=== PATIENT | female | born 1940 | race Caucasian/White ===

== ENCOUNTER → 2016-08-27 | Outpatient (REF) | payer MEDICARE ==
[~2016-08-27] MED LIST: /WARF25TA OR; ACET65TA OR; ALLE25CA OR; AMLO2.5T OR; ASPI81TA83 OR; BENA40TA OR; CALC600T10 OR; CALCIUM WITH VITD OR; CALCTAB22 OR; COLA100C2 OR; CORE6.25 OR; HYDR25TA6 OR; LODINE OR; MILKSUS OR; MIRALEX OR; MULTIVIT OR; PERC5TAB8 OR; PERC7.5T8 OR; VITA500T OR; ZETI10TA OR
== END ==
LOC: M LAB REF 16:29
PROVIDERS: ATTEND Obstetrics & Gynecology
DX: N95.2 Postmenopausal atrophic vaginitis (principal); N81.11 Cystocele, midline; Z79.899 Other long term (current) drug therapy

== ENCOUNTER → 2016-09-01 | Outpatient (CLI) | payer MEDICARE ==
--- NOTE | 2016-09-01 15:27 | REP ---
RIGHT FOOT, FOUR VIEWS: HISTORY: Ganglion cyst. There is no acute fracture or dislocation. The joint spaces are normal in appearance. An osteophyte is present in the inferior calcaneus. IMPRESSION: There is no acute fracture or dislocation.
== END ==
LOC: M CLY 14:28
PROVIDERS: ATTEND Family Medicine
DX: M67.40 Ganglion, unspecified site (principal); R68.83 Chills (without fever)

== ENCOUNTER → 2016-09-27 | Outpatient (REF) | payer MEDICARE | LOC: M LABNEURO 13:04 | PROVIDERS: ATTEND Psychiatry & Neurology Neurology | DX: G43.909 Migraine, unspecified, not intractable, without status migrainosus (principal) ==

== ENCOUNTER → 2016-11-04 | Outpatient (REF) | payer MEDICARE ==
[~2016-11-04] MED LIST changes: +AMLO5TAB2 PO; +APAP500T10 PO; +BENA20TA PO; +CALC-218 PO; +CHLO25TA PO; +CORE10CA PO; +DULO1CAP2 PO; +IRON50TA PO; +METH1TAB2 PO; +MIRA3350 PO; +MULT1TAB10 PO; +NORC1TAB4 PO; +OMEG100011 PO; +OMEP40CA2 PO; +OXYB10TA PO; +PROAAER10 INH; +QVAR1AER2 IN; +SERT50TA PO; +STOO100C PO; +VITAPOW38 PO; +ZETI10TA30 PO; +[UNRECOGNIZED DRUG - CODE] PO
== END ==
LOC: M LAB REF 10:30
PROVIDERS: ATTEND Podiatrist Foot & Ankle Surgery
DX: M67.471 Ganglion, right ankle and foot (principal)

== ENCOUNTER → 2017-01-13 | Outpatient (REF) | payer MEDICARE ==
[2017-01-13 18:26] LABS: ANION GAP 4 MEQ/L (8-16); BLOOD UREA NITROGEN 22 MG/DL (7-18); CALCIUM LEVEL 9.5 MG/DL (8.8-10.2); CARBON DIOXIDE LEVEL 33 MEQ/L (21-32); CHLORIDE LEVEL 101 MEQ/L (98-107); GLOMERULAR FILTRATION RATE > 60.0 (>39); GLUCOSE, FASTING 112 MG/DL (83-110); POTASSIUM SERUM 4.3 MEQ/L (3.5-5.1); SODIUM LEVEL 138 MEQ/L (136-145)
[2017-01-13 18:54] LABS: MEAN CORPUSCULAR HEMOGLOBIN 30.8 pg (27.0-33.0); MEAN CORPUSCULAR HGB CONC 31.9 g/dl (32.0-36.5); MEAN CORPUSCULAR VOLUME 96.8 fl (80.0-96.0); RED CELL DISTRIBUTION WIDTH 12.8 % (11.5-14.5); WHITE BLOOD COUNT 8.5 K/mm3 (4.0-10.0)
== END ==
LOC: M LAB REF 12:41
PROVIDERS: ATTEND Podiatrist
DX: Z01.818 Encounter for other preprocedural examination (principal)

== ENCOUNTER 2017-01-24 05:51 | Day surgery (SDC) | payer MEDICARE ==
[~2017-01-24] VITALS: Ht 165.1 cm; Wt 79.4 kg
[~2017-01-24 05:51] MED LIST changes: -DULO1CAP2 PO; -IRON50TA PO
[2017-01-24] MEDS ORDERED: CLINDAMYCIN 600 MG in APPROPRIATE DILUENT 1 EA IV ONE (06:00)
[2017-01-24] MEDS ORDERED: LR 1,000 ML IV SCH (06:00)
[2017-01-24] MEDS ORDERED: DULO1CAP2 PO (06:30)
[2017-01-24] MEDS ORDERED: IRON50TA PO (06:34)
[2017-01-24] MEDS ORDERED: MIDAZOLAM INJ 2 MG/2 ML VIAL (J2250) As Ordered ONE (07:07)
[2017-01-24] MEDS ORDERED: fentaNYL 100 MCG/2 ML INJECTION (J3010) As Ordered ONE (07:07)
[2017-01-24] MEDS ORDERED: BUPIVACAINE HCL 0.5% 10 ML VIAL As Ordered ONE (07:14)
[2017-01-24] MEDS ORDERED: LIDOCAINE 1% SDV INJ 30 ML VIAL As Ordered ONE (07:14)
[2017-01-24] MEDS ORDERED: LIDOCAINE 1% MDV 20ML VIAL As Ordered ONE (07:15)
[2017-01-24] MEDS ORDERED: dexameTHASONE 4 MG/ML 1ML VIAL (J1100) As Ordered ONE (07:15)
[2017-01-24] MEDS ORDERED: ONDANSETRON 4MG/2ML VIAL (J2405) As Ordered ONE (07:47)
[2017-01-24] MEDS ORDERED: LIDOCAINE 2% INJ 100 MG/5 ML SDV (FOR ANES.) As Ordered ONE (07:47)
[2017-01-24] MEDS ORDERED: PROPOFOL 200 MG/20 ML VIAL As Ordered ONE (07:47)
--- NOTE | 2017-01-24 09:13 | RO ---
DATE OF PROCEDURE: 01/24/2017 PREPROCEDURE DIAGNOSIS: Right ganglion cyst. POSTPROCEDURE DIAGNOSIS: Right ganglion cyst. [place] exostosis. PROCEDURE: Right ganglion cyst excision and dorsal exostectomy. SURGEON: GWEN Salas ROLL CLEANER: None. ANESTHESIA: Monitored anesthesia care with preoperative injection of 20 mL of 1:1 mixture 1% lidocaine and plain 0.50% Marcaine. ESTIMATED BLOOD LOSS: Minimal. MATERIAL: #3-0 Vicryl, #4-0 nylon. INJECTABLES: 1 mL Decadron. COMPLICATIONS: None. SPECIMEN: Right cyst and right exostosis. Ruth Leung is a 76-year-old female who presents to [facility] with the complains of painful mass on the top of her right foot. She presents today for surgical excision. The patient's side and site were identified and marked in preoperative holding area. Consent was reviewed and obtained. All risks, complications and alternatives due to the procedure were explained to the patient in detail. All questions were answered. DESCRIPTION OF PROCEDURE: The patient was brought to the operating room and placed on operating room table in supine position. Monitored anesthesia care was delivered by the anesthesia team. Preoperative injection of 20 mL of 1:1 mixture of 1% lidocaine plain and 0.50% Marcaine plain were injected into the right foot. Right foot was prepped and draped in normal sterile fashion. The patient received clindamycin preoperatively. Tourniquet was applied to the right ankle and inflated to 250 mmHg. A peripherally linear incision was drawn over the dorsal aspect of the right foot of the palpated mass and carried through with a #15 blade. Dissection scissors were carefully used to assess to plane of the extensor tendon. There was an ill-defined mass surrounding the extensor hallucis longus with cyst fluid within the surrounding capsule for this. Cyst was dissected around its margins then excised off the tendon. This was sent for pathology. Underlying extensor hallucis tendon there was a bony prominence noted at the metatarsal cuneiform joint. Capsulotomy performed exposing this bone, this was removed with osteotomes and smoothed with rasps. Site was irrigated with normal saline. No further cyst or bony prominence was identified. Subcutaneous closure was performed with #3-0 Vicryl and skin closed with #4-0 nylon. 1 mL of Decadron was injected. Sterile dressings were applied. Tourniquet was deflated. The patient was brought to post anesthesia care unit (PACU), vitals signs stable, neurovascular status intact. She will be partial weightbearing to the right foot. She will followup in office in two days.
[2017-01-24 09:25] VITALS: BP 130/60
== END 2017-01-24 09:37 | disposition home or self-care (01) ==
LOC: M SDC 05:51
PROVIDERS: ATTEND Podiatrist Foot & Ankle Surgery
DX: M67.471 Ganglion, right ankle and foot (principal); M25.774 Osteophyte, right foot; M54.5 Low back pain; G89.29 Other chronic pain; J45.30 Mild persistent asthma, uncomplicated; F32.9 Major depressive disorder, single episode, unspecified; I11.0 Hypertensive heart disease with heart failure; R94.31 Abnormal electrocardiogram [ECG] [EKG]; K21.9 Gastro-esophageal reflux disease without esophagitis; M12.9 Arthropathy, unspecified; R32 Unspecified urinary incontinence; Z88.1 Allergy status to other antibiotic agents; Z88.2 Allergy status to sulfonamides; Z88.5 Allergy status to narcotic agent; Z88.8 Allergy status to other drugs, medicaments and biological substances; Z79.899 Other long term (current) drug therapy; Z86.73 Personal history of transient ischemic attack (TIA), and cerebral infarction without residual deficits; Z87.442 Personal history of urinary calculi; Z96.0 Presence of urogenital implants; Z95.5 Presence of coronary angioplasty implant and graft; Z96.1 Presence of intraocular lens; Z96.642 Presence of left artificial hip joint; Z96.651 Presence of right artificial knee joint; Z87.891 Personal history of nicotine dependence
CPT/HCPCS: 28090; 28122; 88304; 96374; J1100; J2250; J2405; J3010

== ENCOUNTER → 2017-07-20 | Outpatient (REF) | payer MEDICARE ==
[2017-07-20 11:40] LABS: CREATININE FOR GFR 0.72 MG/DL (0.55-1.30); GLOMERULAR FILTRATION RATE > 60.0 (>39)
[2017-07-20 11:40] LABS: BLOOD UREA NITROGEN 23 MG/DL (7-18)
== END ==
LOC: M LABDRAWC 11:11
DX: K43.9 Ventral hernia without obstruction or gangrene (principal)
CPT/HCPCS: 82565

== ENCOUNTER → 2017-07-22 | Outpatient (CLI) | payer MEDICARE ==
[~2017-07-22] MED LIST changes: -/WARF25TA OR; -ACET65TA OR; -ALLE25CA OR; -AMLO2.5T OR; -AMLO5TAB2 PO; -APAP500T10 PO; -ASPI81TA83 OR; -BENA20TA PO; -BENA40TA OR; -CALC-218 PO; -CALC600T10 OR; -CALCIUM WITH VITD OR; -CALCTAB22 OR; -CHLO25TA PO; -COLA100C2 OR; -CORE10CA PO; -CORE6.25 OR; +GASTROGRAFIN SOLUTION 30ML (Q9963) As Ordered; -HYDR25TA6 OR; +ISOVUE-370 76% 100ML VIAL (Q9967) As Ordered; -LODINE OR; -METH1TAB2 PO; -MILKSUS OR; -MIRA3350 PO; -MIRALEX OR; -MULT1TAB10 PO; -MULTIVIT OR; -NORC1TAB4 PO; -OMEG100011 PO; -OMEP40CA2 PO; -OXYB10TA PO; -PERC5TAB8 OR; -PERC7.5T8 OR; -PROAAER10 INH; -QVAR1AER2 IN; -SERT50TA PO; -STOO100C PO; -VITA500T OR; -VITAPOW38 PO; -ZETI10TA OR; -ZETI10TA30 PO; -[UNRECOGNIZED DRUG - CODE] PO
== END ==
LOC: M RAD 10:46
DX: K43.9 Ventral hernia without obstruction or gangrene (principal); R93.5 Abnormal findings on diagnostic imaging of other abdominal regions, including retroperitoneum
CPT/HCPCS: Q9963

== ENCOUNTER 2017-08-23 06:50 | Day surgery (SDC) | payer MEDICARE ==
[2017-08-23 07:50] LABS: HEMATOCRIT 40.8 % (36.0-47.0); HEMOGLOBIN 13.6 g/dl (12.0-15.5); MEAN CORPUSCULAR HEMOGLOBIN 31.7 pg (27.0-33.0); MEAN CORPUSCULAR HGB CONC 33.3 g/dl (32.0-36.5); MEAN CORPUSCULAR VOLUME 95.1 fl (80.0-96.0); PLATELET COUNT, AUTOMATED 258 10^3/uL (150-450); RED BLOOD COUNT 4.29 10^6/uL (4.00-5.40); RED CELL DISTRIBUTION WIDTH 13.2 % (11.5-14.5); WHITE BLOOD COUNT 8.3 10^3/uL (4.0-10.0)
[2017-08-23] MEDS ORDERED: ceFAZolin 2 GM/D5W 50 ML IV BAG (J0690 PER 500MG) As Ordered (07:57)
[2017-08-23] MEDS ORDERED: METOCLOPRAMIDE INJ 10MG/2ML VIAL (J2765) As Ordered (08:09)
[2017-08-23] MEDS ORDERED: LIDOCAINE 2% INJ 100 MG/5 ML SDV (FOR ANES.) As Ordered (08:09)
[2017-08-23] MEDS ORDERED: PROPOFOL 200 MG/20 ML VIAL As Ordered (08:09)
[2017-08-23] MEDS ORDERED: fentaNYL 100 MCG/2 ML INJECTION (J3010) As Ordered (08:09)
[2017-08-23] MEDS ORDERED: ROCURONIUM BROMIDE 50 MG/5 ML VIAL As Ordered (08:09)
[2017-08-23] MEDS ORDERED: ONDANSETRON 4MG/2ML VIAL (J2405) As Ordered (08:09)
[2017-08-23] MEDS: LR 1,000 ML IV (08:15)
[2017-08-23] MEDS: LevoFLOXacin(LEVAQUIN)500 MG/100 ML BAG (J1956) As Ordered (08:38)
[2017-08-23] MEDS ORDERED: dexameTHASONE 4 MG/ML 1ML VIAL (J1100) As Ordered (08:51)
[2017-08-23] MEDS ORDERED: NEOSTIGMINE 10 MG/10 ML VIAL (J2710) As Ordered (09:01)
[2017-08-23] MEDS ORDERED: GLYCOPYRROLATE INJ 0.2 MG/ML 2 ML VIAL As Ordered (09:01)
[2017-08-23] MEDS: BUPIVACAINE/EPIN 0.5% 30 ML VIAL As Ordered (09:20)
[2017-08-23] MEDS ORDERED: ONDANSETRON 4MG/2ML VIAL (J2405) IV ×2 (09:45→10:00)
[2017-08-23] MEDS ORDERED: LR 1,000 ML IV ×2 (09:45→10:00)
[2017-08-23] MEDS ORDERED: fentaNYL 100 MCG/2 ML INJECTION (J3010) IV (09:45)
[2017-08-23] MEDS ORDERED: MORPHINE 4 MG/ML 1ML VIAL/SYRINGE (J2270) IV (10:00)
[2017-08-23] MEDS ORDERED: PHENYLEPHRINE INJ 10MG/ML VIAL (J2370) As Ordered (10:26)
[2017-08-23] MEDS: NORCO, ANEXSIA 5/325MG TABLET (HYDROcodone/ACETAMINOPHEN) PO (10:42)
== END 2017-08-23 13:10 | disposition home or self-care (01) ==
LOC: M SDC 06:50
DX: F43.9 Reaction to severe stress, unspecified (principal); I10 Essential (primary) hypertension; I25.10 Atherosclerotic heart disease of native coronary artery without angina pectoris; E78.5 Hyperlipidemia, unspecified; J44.9 Chronic obstructive pulmonary disease, unspecified; Z86.73 Personal history of transient ischemic attack (TIA), and cerebral infarction without residual deficits; Z98.61 Coronary angioplasty status; Z87.891 Personal history of nicotine dependence; Z79.899 Other long term (current) drug therapy
CPT/HCPCS: 49590

== ENCOUNTER → 2017-10-10 | Outpatient (REF) | payer MEDICARE ==
[2017-10-10 17:07] LABS: BASO # 0.1 10^3/uL (0.0-0.2); BASO % 0.6 % (0.0-1.0); EOS # 0.4 10^3/uL (0.0-0.50); EOS % 5.1 % (0.0-3.0); HEMATOCRIT 41.4 % (36.0-47.0); HEMOGLOBIN 13.6 g/dl (12.0-15.5); IMMATURE GRANULOCYTE % 0.5 % (0-3.0); LYMPH # 2.8 10^3/uL (1.5-4.5); LYMPH % 34.4 % (24.0-44.0); MEAN CORPUSCULAR HEMOGLOBIN 31.2 pg (27.0-33.0); MEAN CORPUSCULAR HGB CONC 32.9 g/dl (32.0-36.5); MONO # 0.7 10^3/uL (0.0-0.8); MONO % 8.3 % (0.0-5.0); NEUTROPHILS # 4.1 10^3/uL (1.8-7.7); NEUTROPHILS % 51.1 % (36.0-66.0); PLATELET COUNT, AUTOMATED 305 10^3/uL (150-450); RED BLOOD COUNT 4.36 10^6/uL (4.00-5.40); RED CELL DISTRIBUTION WIDTH 13.3 % (11.5-14.5)
[2017-10-10 17:37] LABS: ANION GAP 6 MEQ/L (8-16); BLOOD UREA NITROGEN 17 MG/DL (7-18); C REACTIVE PROTEIN QUANTITATIV < 0.30 MG/DL (0.00-0.30); CALCIUM LEVEL 9.6 MG/DL (8.8-10.2); CARBON DIOXIDE LEVEL 31 MEQ/L (21-32); CHLORIDE LEVEL 104 MEQ/L (98-107); CREATININE FOR GFR 0.73 MG/DL (0.55-1.30); GLOMERULAR FILTRATION RATE > 60.0 (>39); GLUCOSE, FASTING 86 MG/DL (70-100); POTASSIUM SERUM 4.3 MEQ/L (3.5-5.1); SODIUM LEVEL 141 MEQ/L (136-145)
[2017-10-10 18:18] LABS: ERYTHROCYTE SEDIMENTATION RATE 9 mm/hr (0-30)
== END ==
LOC: M SFHCCLAY 13:21
DX: R51 Headache (principal)
CPT/HCPCS: 80048

== ENCOUNTER → 2017-11-19 | Outpatient (CLI) | payer MEDICARE | LOC: M RAD 10:12 | DX: G44.52 New daily persistent headache (NDPH) (principal); I63.9 Cerebral infarction, unspecified | CPT/HCPCS: 70551 ==

== ENCOUNTER → 2018-01-21 | Outpatient (CLI) | payer MEDICARE | LOC: M RAD 09:31 | DX: M51.26 Other intervertebral disc displacement, lumbar region (principal); G89.29 Other chronic pain; M43.17 Spondylolisthesis, lumbosacral region; M43.16 Spondylolisthesis, lumbar region; M47.896 Other spondylosis, lumbar region | CPT/HCPCS: 72148 ==

== ENCOUNTER → 2019-07-24 | Outpatient (REF) | payer MEDICARE ==
[~2019-07-24] MED LIST changes: +ACET65TA OR; +ALLE25CA OR; +AMLO2.5T OR; +AMLO5TAB6 PO; +APAP500T10 PO; +ASPI81TA83 OR; +BENA20TA PO; +BENA40TA OR; +CALC-218 PO; +CALC600T10 OR; +CALCIUM WITH VITD OR; +CALCTAB22 OR; +CARV12.5 PO; +CHLO25TA PO; +COLA100C2 OR; +CORE10CA PO; +CORE6.25 OR; +COUM1TAB18 OR; +DULO1CAP5 PO; +FERR324T2 PO; -GASTROGRAFIN SOLUTION 30ML (Q9963) As Ordered; +HYDR25TA6 OR; +IRON50TA PO; -ISOVUE-370 76% 100ML VIAL (Q9967) As Ordered; +KETO0.5S2 OS; +LODINE OR; +METH-855 PO; +MILKSUS OR; +MIRA3350 PO; +MIRALEX OR; +MM S100C PO; +MULT1TAB10 PO; +MULTIVIT OR; +NORC1TAB7 PO; +OMEG100011 PO; +OMEG1CAP16 PO; +OMEP40CA97 PO; +OXYB10TA23 PO; +PERC5TAB8 OR; +PERC7.5T8 OR; +PRED1SUS2 OS; +PROAAER10 INH; +QVAR80AE10 IN; +SERT-141 PO; +VITA500T OR; +VITAPOW38 PO; +ZETI10TA OR; +ZETI10TA16 PO; +[UNRECOGNIZED DRUG - CODE] PO
[2019-07-24 12:11] LABS: ALBUMIN 3.8 GM/DL (3.2-5.2); ALT/SGPT 19 U/L (12-78); BILIRUBIN,TOTAL 0.6 MG/DL (0.2-1.0); BLOOD UREA NITROGEN 26 MG/DL (7-18); CALCIUM LEVEL 9.2 MG/DL (8.8-10.2); CARBON DIOXIDE LEVEL 30 MEQ/L (21-32); CHLORIDE LEVEL 106 MEQ/L (98-107); CHOLESTEROL LEVEL 182 MG/DL (<200); CHOLESTEROL RISK RATIO 2.888 (<5); CREATININE FOR GFR 0.86 MG/DL (0.55-1.30); GLOMERULAR FILTRATION RATE > 60.0 (>39); GLUCOSE, FASTING 100 MG/DL (70-100); HDL CHOLESTEROL 63 MG/DL (>40); LDL CHOLESTEROL 97 MG/DL (<100); NON-HDL-C 119 MG/DL; POTASSIUM SERUM 4.1 MEQ/L (3.5-5.1); SODIUM LEVEL 141 MEQ/L (136-145); TOTAL PROTEIN 6.4 GM/DL (6.4-8.2); TRIGLYCERIDES LEVEL 112 MG/DL (<150)
== END ==
LOC: M SFHCCLAY 08:06
PROVIDERS: ATTEND Family Medicine
DX: I69.30 Unspecified sequelae of cerebral infarction (principal); I10 Essential (primary) hypertension; I25.10 Atherosclerotic heart disease of native coronary artery without angina pectoris

== ENCOUNTER → 2020-06-11 | Outpatient (REF) | payer MEDICARE ==
[~2020-06-11] MED LIST changes: +AMLO1TAB24 PO; -AMLO5TAB6 PO
[2020-06-11 16:41] LABS: HEMATOCRIT 37.9 % (36.0-47.0); HEMOGLOBIN 11.9 g/dl (12.0-15.5); MEAN CORPUSCULAR HEMOGLOBIN 30.6 pg (27.0-33.0); MEAN CORPUSCULAR HGB CONC 31.4 g/dl (32.0-36.5); MEAN CORPUSCULAR VOLUME 97.4 fl (80.0-96.0); PLATELET COUNT, AUTOMATED 292 10^3/uL (150-450); RED BLOOD COUNT 3.89 10^6/uL (4.00-5.40)
[2020-06-11 17:21] LABS: ALBUMIN 3.8 GM/DL (3.2-5.2); BILIRUBIN,TOTAL 0.4 MG/DL (0.2-1.0); CALCIUM LEVEL 9.9 MG/DL (8.8-10.2); CHOLESTEROL RISK RATIO 3.054 (<5); CREATININE FOR GFR 1.05 MG/DL (0.55-1.30); FREE T4 0.97 NG/DL (0.76-1.46); GLOMERULAR FILTRATION RATE 53.8 (>39); POTASSIUM SERUM 4.6 MEQ/L (3.5-5.1); THYROID STIMULATING HORMONE 1.22 uIU/ML (0.358-3.740); TOTAL PROTEIN 6.3 GM/DL (6.4-8.2)
[2020-06-15 23:06] LABS: CODEINE, URINE Negative (Cutoff=100); CREATININE, URINE 119.4 mg/dL (20.0-300.0); HYDROCODONE CONFIRM, URINE 1583 ng/mL (Cutoff=100); HYDROCODONE, URINE Positive (.); HYDROMORPHONE, URINE Negative (Cutoff=100); MORPHINE, URINE Negative (Cutoff=100); OPIATES, URINE Positive ng/mL (Cutoff=300)
== END ==
LOC: M SFHCCLAY 13:47
PROVIDERS: ATTEND Family Medicine
DX: I25.10 Atherosclerotic heart disease of native coronary artery without angina pectoris (principal); G89.29 Other chronic pain; J45.30 Mild persistent asthma, uncomplicated; Z79.899 Other long term (current) drug therapy

== ENCOUNTER → 2020-07-10 | Outpatient (REF) | payer MEDICARE ==
[2020-07-10 16:24] LABS: HEMATOCRIT 42.1 % (36.0-47.0); MEAN CORPUSCULAR HEMOGLOBIN 30.6 pg (27.0-33.0); MEAN CORPUSCULAR HGB CONC 30.9 g/dl (32.0-36.5); MEAN CORPUSCULAR VOLUME 99.1 fl (80.0-96.0); PLATELET COUNT, AUTOMATED 311 10^3/uL (150-450); RED BLOOD COUNT 4.25 10^6/uL (4.00-5.40); WHITE BLOOD COUNT 6.8 10^3/uL (4.0-10.0)
[2020-07-10 16:57] LABS: PERCENT SATURATION 40.3 % (13.2-45.0)
== END ==
LOC: M SFHCCLAY 10:43
PROVIDERS: ATTEND Family Medicine
DX: D64.9 Anemia, unspecified (principal)

== ENCOUNTER → 2020-10-30 | Outpatient (REF) | payer MEDICARE ==
[~2020-10-30] MED LIST changes: +BAYE325T13 PO; +HYDR-3713 PO; +OMEP40CA4 PO; -OMEP40CA97 PO; +PRAL1INJ SC; +PREG25CA PO; +PRESCAP PO; +THERTAB52 PO; +WELLTAB40 PO
[2020-10-30 16:23] LABS: HEMOGLOBIN 12.8 g/dl (12.0-15.5); MEAN CORPUSCULAR HEMOGLOBIN 31.1 pg (27.0-33.0); MEAN CORPUSCULAR VOLUME 97.3 fl (80.0-96.0); PLATELET COUNT, AUTOMATED 320 10^3/uL (150-450); RED BLOOD COUNT 4.11 10^6/uL (4.00-5.40); WHITE BLOOD COUNT 8.3 10^3/uL (4.0-10.0)
[2020-10-30 16:45] LABS: BLOOD UREA NITROGEN 17 MG/DL (7-18); CALCIUM LEVEL 9.6 MG/DL (8.8-10.2); CARBON DIOXIDE LEVEL 34 MEQ/L (21-32); CHLORIDE LEVEL 103 MEQ/L (98-107); CREATININE FOR GFR 0.72 MG/DL (0.55-1.30); GLOMERULAR FILTRATION RATE > 60.0 (>39); GLUCOSE, FASTING 94 MG/DL (70-100); POTASSIUM SERUM 4.6 MEQ/L (3.5-5.1); SODIUM LEVEL 138 MEQ/L (136-145)
== END ==
LOC: M SFHCCLAY 10:11
PROVIDERS: ATTEND Family Medicine
DX: Z01.818 Encounter for other preprocedural examination (principal); N39.46 Mixed incontinence; I10 Essential (primary) hypertension; Z90.81 Acquired absence of spleen

== ENCOUNTER → 2020-11-01 | Outpatient (CLI) | payer MEDICARE | LOC: M LABSMTC 09:22 | PROVIDERS: ATTEND Anesthesiology | DX: Z01.812 Encounter for preprocedural laboratory examination (principal); Z20.822 Contact with and (suspected) exposure to COVID-19 ==

== ENCOUNTER 2020-11-06 12:39 | Day surgery (SDC) | payer MEDICARE ==
[~2020-11-06] VITALS: Ht 162.6 cm; Wt 71.7 kg
[~2020-11-06 12:39] MED LIST changes: +ALIR75PE3 SC; +LR 1,000 ML IV ONE; -PRAL1INJ SC; +VANCOMYCIN HCL 1,000 MG, VIAL MATE ADAPTER 1 EACH in NS 250 ML IV ONE
[2020-11-06 13:16] LABS: HEMATOCRIT 39.2 % (36.0-47.0); HEMOGLOBIN 12.7 g/dl (12.0-15.5); MEAN CORPUSCULAR HEMOGLOBIN 31.3 pg (27.0-33.0); MEAN CORPUSCULAR HGB CONC 32.4 g/dl (32.0-36.5); MEAN CORPUSCULAR VOLUME 96.6 fl (80.0-96.0); PLATELET COUNT, AUTOMATED 292 10^3/uL (150-450); RED BLOOD COUNT 4.06 10^6/uL (4.00-5.40); WHITE BLOOD COUNT 8.5 10^3/uL (4.0-10.0)
[2020-11-06] MEDS ORDERED: VANCOMYCIN 1000MG/20ML VIAL As Ordered ONE (13:31)
[2020-11-06] MEDS ORDERED: fentaNYL 100 MCG/2 ML INJECTION (J3010) As Ordered ONE (13:52)
[2020-11-06] MEDS ORDERED: ROCURONIUM BROMIDE 50 MG/5 ML VIAL As Ordered ONE (13:53)
[2020-11-06] MEDS ORDERED: ACETAMINOPHEN 1000MG 100ML IV BTL (OFIRMEV) (J0131 PER 10MG) As Ordered ONE (13:53)
[2020-11-06] MEDS ORDERED: PHENYLephrine 500MCG 5ML (100MCG/ML) SYRINGE As Ordered ONE (13:53)
[2020-11-06] MEDS ORDERED: propofoL 200 MG/20 ML VIAL As Ordered ONE (13:53)
[2020-11-06] MEDS ORDERED: LIDOCAINE 2% 100MG/5ML SDV (FOR ANES.) As Ordered ONE (13:53)
[2020-11-06] MEDS ORDERED: ePHEDrine SULFATE 25 MG/5 ML(5MG/ML) SYRINGE As Ordered ONE (13:53)
[2020-11-06] MEDS ORDERED: ONDANSETRON 4MG/2ML VIAL As Ordered ONE (13:53)
[2020-11-06] MEDS ORDERED: dexameTHASONE 4 MG/ML 1ML VIAL (J1100 PER 1MG) As Ordered ONE (13:53)
[2020-11-06] MEDS ORDERED: SUGAMMADEX SODIUM 500 MG/5 ML VIAL (BRIDION) As Ordered ONE (13:53)
[2020-11-06] MEDS ORDERED: SCOPOLAMINE 1MG TRANSDERMAL PATCH TOP ONE (14:45)
[2020-11-06] MEDS ORDERED: VASOPRESSIN INJ 20 UNITS/ML VIAL As Ordered ONE (15:00)
[2020-11-06] MEDS ORDERED: KETOROLAC 60MG 2ML VIAL As Ordered ONE (17:21)
[2020-11-06] MEDS ORDERED: ONDANSETRON 4MG/2ML VIAL IV PRN (17:55)
[2020-11-06] MEDS ORDERED: METOCLOPRAMIDE INJ 10MG/2ML VIAL (J2765 PER 1) IV PRN (17:55)
[2020-11-06] MEDS ORDERED: LR 1,000 ML IV SCH ×2 (17:55→18:00)
[2020-11-06] MEDS ORDERED: fentaNYL 100 MCG/2 ML INJECTION (J3010) IV PRN (17:55)
[2020-11-06] MEDS: PERCOCET 5MG/325MG TAB PO PRN ×2 (18:01→18:38)
[2020-11-06] MEDS: HYDROMORPHONE HCL 0.5 MG/ 0.5 ML SYRINGE (J1170 PER 1) IV PRN ×2 (18:42→18:55)
[2020-11-06 19:57] VITALS: BP 141/74
--- NOTE | 2020-11-07 09:13 | RO ---
OPERATIVE NOTE DATE OF OPERATION: 11/06/2020 PREOPERATIVE DIAGNOSIS/INDICATION FOR SURGERY: Symptomatic prolapse. POSTOPERATIVE DIAGNOSIS: Symptomatic prolapse. PROCEDURE: Sacrospinous suspension with anterior and posterior repair, cystourethroscopy, and perineorrhaphy. SURGEON: Jo Mcarthur M.D. STEAM TABLE WORKER: None. ANESTHESIA: General endotracheal anesthesia. BRIEF DESCRIPTION OF PROCEDURE AND FINDINGS: Ruth was brought to the operating room where sufficient general endotracheal anesthesia was induced. She was prepped and draped in position in the usual sterile fashion and her Gellhorn pessary removed. The bladder was then emptied and then, the cervix grasped with a single-tooth tenaculum in this patient who wanted to keep her cervix and posterior cul-de-sac visualized. An incision was made in the posterior cul-de-sac and then the posterior vaginal wall was dissected away from the underlying rectovaginal septum. We dissected laterally towards the patient's right side to clear the sacrospinous ligament and from a posterior approach, placed two Anchorsure anchors, each one of these had two #2-0 Maxon delayed absorbable sutures. We thus had four sutures for apical support. The patient absolutely wanted function and support. She is definitely still using it and wants it at length and also wanted to keep her uterus. So we went ahead and two of those sutures, placed on the right and left posterior, and then two we brought under the anterior dissection that we had done just behind the cervix, and then came around the cervix on each side; similar to the location you would use for a cerclage, using somewhat the bulk of the cervix to facilitate the support with both of the arms buried, and then brought these out on the right and left side anterior to the uterus. So we did not tie around the uterus, we went behind an anterior one on the left side and one on the right side. We then closed the colpotomy and brought down these sutures in a single throw each and the cystourethroscopy was done. The patient had had 500 plus in her bladder preop. She has a fairly good size bladder and even with tissue drawn up, it was clear there was still a little bit of cystocele when we did the cysto, but we did see normal jets of urine bilaterally and peristalsis not all that active in this 79-year-old patient, but definitely there. So we brought down the rest of the throws on those sutures and then in that anterior defect that still existed, we did an anterior midline incision and did an anterior repair separate from the portion that had been elevated initially, working hard not to over-correct for this patient who wanted function, but to get good correction. She also had a little bit of ulceration of the tissues in the anterior aspect of the cervix there, so we did not trim a lot of that off with this, but rather closed over. The tissues were a little friable and we did not want to place them under undue tension and wanted a good closure. We then worked posteriorly. On the right side, there was a defect in the rectovaginal septum fairly close to the perineal body, some gapping at the perineal body, and again on the right side the rectovaginal septum and perineal body were no longer fully attached to each other. So we went ahead and removed an inverted triangle of tissue from the perineal body, dissected in the midline posteriorly, freed the vaginal tissues from the rectovaginal septum, corrected that defect, and reconnected the rectovaginal septum to the perineal body. We then used 0 for perineorrhaphy and then closed the tissues after removing some redundant vaginal epithelium and posteriorly closed the tissues with 2-0 Vicryl with good approximation and hemostasis achieved. Again, we made sure to leave adequate caliber and depth, more than is average, for this patient who definitely wanted to focus both on function and on longevity, but definitely did not want over-correction. When we had a good repair with reconnection of those tissues without over-correcting and of course confirmed with rectal exam that there were not sutures in the rectum, the procedure was then ended. ESTIMATED BLOOD LOSS: About 25 mL. FLUID REPLACEMENT: Crystalloid. COMPLICATIONS: None. CONDITION AND DISPOSITION: Ruth tolerated the procedure well and was recovering in the recovery room in good condition.
== END 2020-11-06 20:07 | disposition home or self-care (01) ==
LOC: M SDC 12:39
PROVIDERS: ATTEND Obstetrics & Gynecology
DX: N81.4 Uterovaginal prolapse, unspecified (principal); I25.10 Atherosclerotic heart disease of native coronary artery without angina pectoris; K21.9 Gastro-esophageal reflux disease without esophagitis; I10 Essential (primary) hypertension; E78.5 Hyperlipidemia, unspecified; Z98.61 Coronary angioplasty status; F32.9 Major depressive disorder, single episode, unspecified; F41.9 Anxiety disorder, unspecified; Z79.82 Long term (current) use of aspirin; Z79.899 Other long term (current) drug therapy; Z88.1 Allergy status to other antibiotic agents; Z88.5 Allergy status to narcotic agent; Z88.2 Allergy status to sulfonamides; Z88.8 Allergy status to other drugs, medicaments and biological substances
CPT/HCPCS: 36415; 57260; 57282; 85027; 86850; 86900; 86901; 88302; C1713; J0131; J1100; J1170; J1885; J2370; J2405; J2765; J3010; J3370

== ENCOUNTER → 2020-11-17 | Outpatient (REF) | payer MEDICARE ==
[~2020-11-17] MED LIST changes: -LR 1,000 ML IV ONE; -VANCOMYCIN HCL 1,000 MG, VIAL MATE ADAPTER 1 EACH in NS 250 ML IV ONE
== END ==
LOC: M SFHCCAPE 11:04
PROVIDERS: ATTEND Physician Assistant
DX: N39.0 Urinary tract infection, site not specified (principal)

== ENCOUNTER → 2021-02-10 | Outpatient (REF) | payer MEDICARE ==
[2021-02-10 16:15] LABS: HEMATOCRIT 39.4 % (36.0-47.0); HEMOGLOBIN 12.6 g/dl (12.0-15.5); MEAN CORPUSCULAR HEMOGLOBIN 31.1 pg (27.0-33.0); MEAN CORPUSCULAR VOLUME 97.3 fl (80.0-96.0); PLATELET COUNT, AUTOMATED 306 10^3/uL (150-450); RED BLOOD COUNT 4.05 10^6/uL (4.00-5.40); WHITE BLOOD COUNT 7.7 10^3/uL (4.0-10.0)
[2021-02-10 19:11] LABS: FOLATE 23.7 NG/ML (>5.4); FREE T4 0.94 NG/DL (0.76-1.46); THYROID STIMULATING HORMONE 1.62 uIU/ML (0.358-3.740)
== END ==
LOC: M SFHCCLAY 12:02
PROVIDERS: ATTEND Family Medicine
DX: R41.3 Other amnesia (principal)

== ENCOUNTER → 2021-04-20 | Outpatient (REF) | payer MEDICARE ==
[2021-04-20 18:14] LABS: APPEARANCE, URINE HAZY (CLEAR); BACTERIA, URINE AUTO NEGATIVE (NEGATIVE); BILIRUBIN, URINE AUTO NEGATIVE (NEGATIVE); BLOOD, URINE BLOOD NEGATIVE (NEGATIVE); COLOR, URINE YELLOW (YELLOW); GLUCOSE, URINE (UA) AUTO NEGATIVE (NEGATIVE); KETONE, URINE AUTO NEGATIVE (NEGATIVE); LEUKOCYTE ESTERASE, URINE AUTO TRACE (NEGATIVE); MUCUS, URINE SMALL (NEGATIVE); NITRITE, URINE AUTO NEGATIVE (NEGATIVE); PROTEIN, URINE AUTO NEGATIVE (NEGATIVE); RBC, URINE AUTO 0 /HPF (0-3); SPECIFIC GRAVITY URINE AUTO 1.017 (1.002-1.035); SQUAMOUS EPITHELIAL CELL UR AU 0 /HPF (0-6); TRANSITIONAL EPITHELIAL AUTO <1 /HPF; UROBILINOGEN, URINE AUTO 0.2 mg/dL (0.0-2.0); WBC, URINE AUTO 1 /HPF (0-3)
== END ==
LOC: M LAB REF 16:39
PROVIDERS: ATTEND Obstetrics & Gynecology
DX: N32.81 Overactive bladder (principal); N39.41 Urge incontinence

== ENCOUNTER → 2021-06-11 | Outpatient (REF) | payer MEDICARE | LOC: M SFHCCLAY 12:20 | PROVIDERS: ATTEND Family Medicine | DX: M54.41 Lumbago with sciatica, right side (principal) ==

== ENCOUNTER → 2021-06-29 | Outpatient (REF) | payer MEDICARE ==
[2021-06-29 16:40] LABS: BLOOD UREA NITROGEN 22 MG/DL (7-18); CALCIUM LEVEL 9.5 MG/DL (8.8-10.2); CARBON DIOXIDE LEVEL 29 MEQ/L (21-32); CHLORIDE LEVEL 104 MEQ/L (98-107); CREATININE FOR GFR 0.94 MG/DL (0.55-1.30); GLOMERULAR FILTRATION RATE > 60.0 (>32); GLUCOSE, FASTING 90 MG/DL (70-100); POTASSIUM SERUM 4.2 MEQ/L (3.5-5.1); SODIUM LEVEL 139 MEQ/L (136-145)
== END ==
LOC: M SFHCCLAY 11:05
PROVIDERS: ATTEND Family Medicine
DX: F32.9 Major depressive disorder, single episode, unspecified (principal); I10 Essential (primary) hypertension

== ENCOUNTER → 2021-12-09 | Outpatient (REF) | payer MEDICARE ==
[2021-12-09 17:00] LABS: HEMATOCRIT 36.4 % (36.0-47.0); HEMOGLOBIN 11.9 g/dl (12.0-15.5); MEAN CORPUSCULAR HEMOGLOBIN 31.6 pg (27.0-33.0); MEAN CORPUSCULAR HGB CONC 32.7 g/dl (32.0-36.5); MEAN CORPUSCULAR VOLUME 96.8 fl (80.0-96.0); PLATELET COUNT, AUTOMATED 301 10^3/uL (150-450); RED BLOOD COUNT 3.76 10^6/uL (4.00-5.40); WHITE BLOOD COUNT 7.5 10^3/uL (4.0-10.0)
[2021-12-09 20:43] LABS: BLOOD UREA NITROGEN 26 MG/DL (7-18); CALCIUM LEVEL 9.6 MG/DL (8.8-10.2); CARBON DIOXIDE LEVEL 30 MEQ/L (21-32); CHLORIDE LEVEL 103 MEQ/L (98-107); CREATININE FOR GFR 0.83 MG/DL (0.55-1.30); GLOMERULAR FILTRATION RATE > 60.0 (>32); GLUCOSE, FASTING 91 MG/DL (70-100); NT-PRO BNP 180 PG/ML (<450); POTASSIUM SERUM 4.3 MEQ/L (3.5-5.1); SODIUM LEVEL 138 MEQ/L (136-145)
[2021-12-09 20:49] LABS: FREE T4 0.91 NG/DL (0.76-1.46)
[2021-12-10 08:20] LABS: FERRITIN 463 NG/ML (8-252); IRON (FE) 107 UG/DL (50-170); PERCENT SATURATION 44.2 % (13.2-45.0); TOTAL IRON BINDING CAPACITY 242 UG/DL (250-450)
[2021-12-10 10:34] LABS: VITAMIN B12 LEVEL 429 PG/ML (247-911)
[2021-12-10 10:35] LABS: FOLATE > 24.0 NG/ML (>5.4)
== END ==
LOC: M SFHCCLAY 13:56
PROVIDERS: ATTEND Family Medicine
DX: J45.20 Mild intermittent asthma, uncomplicated (principal); I25.10 Atherosclerotic heart disease of native coronary artery without angina pectoris; I10 Essential (primary) hypertension; D64.9 Anemia, unspecified

== ENCOUNTER → 2022-06-17 | Outpatient (REF) | payer MEDICARE ==
[2022-06-17 18:05] LABS: CHOLESTEROL RISK RATIO 4.47 (<5); HDL CHOLESTEROL 62.1 MG/DL (>40); LDL CHOLESTEROL 188.9 MG/DL (<100)
== END ==
LOC: M LABDRAWC 17:14
PROVIDERS: ATTEND Nurse Practitioner Family
DX: E78.00 Pure hypercholesterolemia, unspecified (principal)

== ENCOUNTER → 2022-06-24 | Outpatient (REF) | payer MEDICARE | LOC: M SFHCWAGY 12:54 | PROVIDERS: ATTEND Nurse Practitioner Family | DX: Z12.4 Encounter for screening for malignant neoplasm of cervix (principal); N95.2 Postmenopausal atrophic vaginitis | CPT/HCPCS: 87624; G0123 ==

== ENCOUNTER → 2022-09-16 | Outpatient (REF) | payer MEDICARE | LOC: M SFHCWAGY 17:15 | PROVIDERS: ATTEND Nurse Practitioner Family | DX: N89.8 Other specified noninflammatory disorders of vagina (principal) ==

== ENCOUNTER → 2022-09-22 | Outpatient (REF) | payer MEDICARE | LOC: M SFHCWAGY 15:11 | PROVIDERS: ATTEND Nurse Practitioner Family | DX: N39.0 Urinary tract infection, site not specified (principal) ==

== ENCOUNTER → 2022-10-14 | Outpatient (REF) | payer MEDICARE ==
[2022-10-14 12:39] LABS: BASO # 0.1 10^3/uL (0.0-0.2); EOS # 0.4 10^3/uL (0.0-0.5); EOS % 6.7 % (0.0-3.0); HEMATOCRIT 36.8 % (36.0-47.0); HEMOGLOBIN 12.1 g/dl (12.0-15.5); LYMPH # 2.1 10^3/uL (1.5-5.0); LYMPH % 33.8 % (24.0-44.0); MEAN CORPUSCULAR HEMOGLOBIN 31.8 pg (27.0-33.0); MEAN CORPUSCULAR HGB CONC 32.9 g/dl (32.0-36.5); MEAN CORPUSCULAR VOLUME 96.8 fl (80.0-96.0); MONO # 0.5 10^3/uL (0.0-0.8); MONO % 7.6 % (2.0-8.0); NEUTROPHILS # 3.1 10^3/uL (1.5-8.5); NEUTROPHILS % 50.6 % (36.0-66.0); PLATELET COUNT, AUTOMATED 287 10^3/uL (150-450); WHITE BLOOD COUNT 6.1 10^3/uL (4.0-10.0)
[2022-10-14 13:17] LABS: ALBUMIN 3.7 G/DL (3.2-5.2); ALKALINE PHOSPHATASE 81 U/L (46-116); ALT/SGPT 21 U/L (7.0-40); AST/SGOT 15 U/L (<34); BILIRUBIN,TOTAL 0.6 MG/DL (0.3-1.2); BLOOD UREA NITROGEN 30 MG/DL (9-23); CALCIUM LEVEL 8.9 MG/DL (8.3-10.6); CARBON DIOXIDE LEVEL 30 MMOL/L (20-31); CHLORIDE LEVEL 102 MMOL/L (98-107); CHOLESTEROL LEVEL 284 MG/DL (<200); CHOLESTEROL RISK RATIO 4.64 (<5); FREE T4 0.99 NG/DL (0.89-1.76); GLOMERULAR FILTRATION RATE > 60.0 (>32); GLUCOSE, FASTING 113 MG/DL (74-106); HDL CHOLESTEROL 61.1 MG/DL (>40); LDL CHOLESTEROL 197.3 MG/DL (<100); NON-HDL-C 222.9 MG/DL; POTASSIUM SERUM 4.7 MMOL/L (3.5-5.1); SODIUM LEVEL 139 MMOL/L (136-145); THYROID STIMULATING HORMONE 1.358 uIU/ML (0.55-4.78); TOTAL PROTEIN 5.9 G/DL (5.7-8.2); TRIGLYCERIDES LEVEL 128 MG/DL (<150)
== END ==
LOC: M SFHCCLAY 09:13
PROVIDERS: ATTEND Family Medicine
DX: R59.0 Localized enlarged lymph nodes (principal); J45.20 Mild intermittent asthma, uncomplicated; I10 Essential (primary) hypertension; I25.10 Atherosclerotic heart disease of native coronary artery without angina pectoris

== ENCOUNTER → 2023-01-18 | Outpatient (CLI) | payer MEDICARE ==
[~2023-01-18] MED LIST changes: +EZET10TA58 PO; -ZETI10TA16 PO
== END ==
LOC: M WHC 13:01
PROVIDERS: ATTEND Family Medicine
DX: Z12.31 Encounter for screening mammogram for malignant neoplasm of breast (principal)

== ENCOUNTER → 2023-05-31 | Outpatient (CLI) | payer MEDICARE | LOC: M CLY 13:07 | PROVIDERS: ATTEND Family Medicine | DX: M25.511 Pain in right shoulder (principal); M19.011 Primary osteoarthritis, right shoulder; D16.9 Benign neoplasm of bone and articular cartilage, unspecified; M75.31 Calcific tendinitis of right shoulder ==

== ENCOUNTER → 2023-12-13 | Outpatient (REF) | payer MEDICARE ==
[2023-12-13 14:50] LABS: HEMATOCRIT 38.7 % (36.0-47.0); HEMOGLOBIN 12.3 g/dl (12.0-15.5); MEAN CORPUSCULAR HEMOGLOBIN 31.5 pg (27.0-33.0); MEAN CORPUSCULAR HGB CONC 31.8 g/dl (32.0-36.5); PLATELET COUNT, AUTOMATED 295 10^3/uL (150-450); RED BLOOD COUNT 3.91 10^6/uL (4.00-5.40)
[2023-12-13 15:23] LABS: THYROID STIMULATING HORMONE 1.407 uIU/ML (0.55-4.78)
[2023-12-13 15:26] LABS: ALBUMIN 3.7 G/DL (3.2-5.2); ALKALINE PHOSPHATASE 77 U/L (46-116); ALT/SGPT 19 U/L (7.0-40); AST/SGOT 14 U/L (<34); BILIRUBIN,TOTAL 0.5 MG/DL (0.3-1.2); BLOOD UREA NITROGEN 22 MG/DL (9-23); CALCIUM LEVEL 9.7 MG/DL (8.3-10.6); CARBON DIOXIDE LEVEL 31 MMOL/L (20-31); CHLORIDE LEVEL 106 MMOL/L (98-107); CHOLESTEROL LEVEL 237 MG/DL (<200); CHOLESTEROL RISK RATIO 4.61 (<5); CREATININE FOR GFR 0.78 MG/DL (0.55-1.30); GLOMERULAR FILTRATION RATE > 60.0 (>32); GLUCOSE, FASTING 76 MG/DL (74-106); HDL CHOLESTEROL 51.4 MG/DL (>40); LDL CHOLESTEROL 148.6 MG/DL (<100); NON-HDL-C 185.6 MG/DL; POTASSIUM SERUM 4.4 MMOL/L (3.5-5.1); SODIUM LEVEL 142 MMOL/L (136-145); TOTAL PROTEIN 6.3 G/DL (5.7-8.2); TRIGLYCERIDES LEVEL 185 MG/DL (<150)
== END ==
LOC: M SFHCCLAY 09:35
PROVIDERS: ATTEND Family Medicine
DX: I10 Essential (primary) hypertension (principal); R59.0 Localized enlarged lymph nodes; J45.20 Mild intermittent asthma, uncomplicated; I25.10 Atherosclerotic heart disease of native coronary artery without angina pectoris; M54.41 Lumbago with sciatica, right side

== ENCOUNTER → 2024-08-22 | Outpatient (CLI) | payer MEDICARE | LOC: M WHC 10:35 | PROVIDERS: ATTEND Physician Assistant | DX: Z12.31 Encounter for screening mammogram for malignant neoplasm of breast (principal); R92.313 Mammographic fatty tissue density, bilateral breasts ==